=== PATIENT | male | born 1995 | race African-American/Black ===

== ENCOUNTER 2018-06-16 18:52 | Emergency (ER) | payer BC, MEDICAID ==
[2018-06-16 18:59] VITALS: BP 152/94
[2018-06-16] MEDS ORDERED: Albuterol 2.5 MG/3 ML NEB.SOL* (0.083%) INH ONE (19:02)
--- NOTE | 2018-06-16 19:16 | UC ---
Respiratory Complaint HPI - HPI Summary HPI Summary: Patient states he woke uyp this morning very short of breath and coughing, worked all day and is not feeling better. denies any fever, just very SOB when he tried to do things - History of Current Complaint Chief Complaint: UCRespiratory Stated Complaint: COUGH,DIFFICULTY BREATHING Time Seen by Provider: 06/16/18 18:59 Hx Obtained From: Patient Onset/Duration: Sudden Onset, Lasting Days - 1 Timing: Constant Severity Initially: Moderate Severity Currently: Moderate Pain Intensity: 8 Associated Signs And Symptoms: Positive: Dyspnea, Wheezing - Allergies/Home Medications Allergies/Adverse Reactions: Allergies Allergy/AdvReac Type Severity Reaction Status Date / Time No Known Allergies Allergy Verified 06/16/18 18:59 PMH/Surg Hx/FS Hx/Imm Hx Previously Healthy: Yes - Surgical History Surgical History: Yes Surgery Procedure, Year, and Place: R ingunal hernia?? - Family History Known Family History: Positive: Hypertension, Diabetes - Social History Alcohol Use: None Substance Use Type: None Smoking Status (MU): Never Smoked Tobacco Review of Systems Constitutional: Fatigue Skin: Negative Eyes: Negative ENT: Negative Respiratory: Shortness Of Breath, Cough Cardiovascular: Negative Gastrointestinal: Negative Genitourinary: Negative Motor: Negative Neurovascular: Negative Musculoskeletal: Negative Neurological: Negative Psychological: Negative Is Patient Immunocompromised?: No All Other Systems Reviewed And Are Negative: Yes Physical Exam Triage Information Reviewed: Yes Appearance: Well-Nourished, Ill-Appearing, Pain Distress Vital Signs: Initial Vital Signs Temp 99.1 F 06/16/18 18:56 Pulse 73 06/16/18 18:56 Resp 16 06/16/18 18:56 BP 152/94 06/16/18 18:56 Pulse Ox 100 06/16/18 18:56 Vital Signs Reviewed: Yes Eye Exam: Normal ENT Exam: Normal ENT: Positive: Pharyngeal erythema, TMs normal Dental Exam: Normal Neck exam: Normal Neck: Positive: Supple, Nontender, No Lymphadenopathy Respiratory: Positive: Decreased breath sounds, Wheezing, Inspiration Cardiovascular Exam: Normal Cardiovascular: Positive: RRR, No Murmur, Pulses Normal Abdominal Exam: Normal Abdomen Description: Positive: Nontender, No Organomegaly, Soft Musculoskeletal Exam: Normal Neurological Exam: Normal Psychological Exam: Normal Skin Exam: Normal UC Diagnostic Evaluation - Laboratory O2 Sat by Pulse Oximetry: 100 Respiratory Course/Dx - Course Course Of Treatment: hx obtained, exam performed ,meds reviewed, neb treatment given, Patient states no relief with neb, complaining me mid chest pain, EKG and CHest xray ordered. all neg, treated for costochondritis - Differential Dx/Diagnosis Differential Diagnosis/HQI/PQRI: Asthma, Bronchitis, Laryngitis, Sinusitis Provider Diagnoses: constochondritis Discharge - Sign-Out/Discharge Documenting (check all that apply): Patient Departure All imaging exams completed and their final reports reviewed: Yes - Discharge Plan Condition: Stable Disposition: HOME Prescriptions: predniSONE [Prednisone 20 MG TAB] 40 mg PO DAILY #14 tablet Patient Education Materials: Costochondritis (ED) Additional Instructions: 1. Take the medication as prescribed. 2. HEat the area multiple times a day 3. Take it easy rest, no heavy lifting for 3-4 days. - Billing Disposition and Condition Condition: STABLE Disposition: Home
[2018-06-16] MEDS ORDERED: Ibuprofen TAB* 600 MG PO ONE (20:07)
[2018-06-16] MEDS ORDERED: Ibuprofen TAB* 600 MG ONE (20:08)
--- NOTE | 2018-06-17 08:00 | RAD ---
INDICATION: Chest pain, shortness of breath, cough. COMPARISON: No relevant prior exams available on the [facility] [place] [facility] for comparison. TECHNIQUE: Dual energy PA and routine lateral views of the chest were obtained. REPORT: Clear lungs and pleural spaces. Negative for pneumothorax. The heart, pulmonary vasculature, and mediastinal contours are unremarkable. Unremarkable osseous structures and soft tissue contours. IMPRESSION: #. No evidence for acute intrathoracic disease. R0
== END 2018-06-16 20:21 | disposition home or self-care (01) ==
LOC: EDBD → UCCORT 18:52
DX: M94.0 Chondrocostal junction syndrome [Tietze] (principal); R05 Cough
CPT/HCPCS: 71046; 93005; 99202; A9270-GY; G0463